=== PATIENT | female | born 1945 | race Caucasian/White ===

== ENCOUNTER 2025-03-10 15:15 | Inpatient (IN) | payer MEDICARE, OTHER ==
[~2025-03-10] VITALS: Ht 157.5 cm; Wt 56.2 kg
[2025-03-10 16:04] LABS: BASOPHILS % (AUTO) 0.6 % (0.0-2.0); EOSINOPHILS # (AUTO) 0.1 K/uL (0.0-0.7); EOSINOPHILS % (AUTO) 0.8 % (0.0-7.0); HEMATOCRIT 41.3 % (31.2-41.9); HEMOGLOBIN 13.7 g/dL (10.9-14.3); LYMPHOCYTES # (AUTO) 1.4 K/uL (0.8-4.8); LYMPHOCYTES % (AUTO) 21.6 % (20.5-51.5); MEAN CORPUSCULAR HEMOGLOBIN 30.3 uug (24.7-32.8); MEAN CORPUSCULAR HGB CONC 33 g/dL (32.3-35.6); MEAN CORPUSCULAR VOLUME 91.2 fL (75.5-95.3); MONOCYTES # (AUTO) 0.3 K/uL (0.1-1.30); MONOCYTES % (AUTO) 4.2 % (0.0-11.0); NEUTROPHILS # (AUTO) 4.7 K/uL (1.8-8.9); NEUTROPHILS % (AUTO) 72.8 % (38.5-71.5); PLATELET COUNT (AUTO) 199 K/uL (179-408); RED BLOOD CELL COUNT(AUTO) 4.53 MIL/uL (3.63-4.92); WHITE BLOOD COUNT (AUTO) 6.5 K/uL (3.8-11.8)
[2025-03-10 16:12] LABS: CALCIUM 10.9 mg/dL (8.5-10.1); CARBON DIOXIDE 27 mmol/L (21-32); CHLORIDE 104 mmol/L (98-107); CREATININE 1.3 mg/dL (0.6-1.3); GLUCOSE 80 mg/dL (74-106); POTASSIUM 4.5 mmol/L (3.5-5.1); SODIUM SERUM 142 mmol/L (136-145); UREA NITROGEN, BLOOD 26 mg/dL (7-18)
[2025-03-10 16:13] LABS: DIFFERENTIAL COMMENT 1
[2025-03-10 16:18] LABS: ALANINE AMINOTRANSFERASE 18 U/L (14-59); ALKALINE PHOSPHATASE 89 U/L (50-136); ASPARTATE AMINOTRANSFERASE 19 U/L (15-37); BILIRUBIN,DIRECT 0.2 mg/dL (0.0-0.2); BILIRUBIN,TOTAL 0.6 mg/dL (0.2-1.0); TOTAL PROTEIN, SERUM 8.1 g/dL (6.4-8.2)
[2025-03-10 16:20] LABS: ACETAMINOPHEN < 2.0 ug/mL (10-30)
[2025-03-10 16:39] LABS: ETHANOL < 3 MG/DL (0-10)
[2025-03-10 16:44] LABS: *BILIRUBIN,URIN NEGATIVE (NEGATIVE); *BLOOD, URINE NEGATIVE (NEGATIVE); *CLARITY,URINE CLEAR (CLEAR); *COLOR,URINE YELLOW (YELLOW); *KETONES,URINE TRACE (NEGATIVE); *PROTEIN,URINE NEGATIVE (NEGATIVE); *UROBILINOGEN,URINE 0.2 E.U./dl (NORMAL); LEUKOCYTE ESTERASE ,URINE NEGATIVE (NEGATIVE); NITRITE, URINE NEGATIVE (NEGATIVE); PH,URINE 6.5 (5.0-8.0); UGLUCOSE NEGATIVE (NEGATIVE)
[2025-03-10 16:45] LABS: RBC,URINE 0-3 /HPF (0-3); WBC,URINE 0-3 /HPF (0-3)
[2025-03-10 16:51] LABS: *AMPHETAMINE, URINE NEGATIVE (NEGATIVE); *BARBITURATE, URINE NEGATIVE (NEGATIVE); *BENZODIAZEPINE, URINE NEGATIVE (NEGATIVE); *CANNABINOID, URINE NEGATIVE (NEGATIVE); *COCCAINE, URINE NEGATIVE (NEGATIVE); *OPIATE, URINE NEGATIVE (NEGATIVE); *PHENCYCLIDINE SCREEN,URINE NEGATIVE (NEGATIVE); FENTANYL, URINE NEGATIVE (NEGATIVE)
[2025-03-10 19:35] VITALS: BP 158/84; TEMP 98.5; O2SAT 98
[2025-03-10] MEDS ORDERED: MAGNESIUM HYDROXIDE 30 ML LIQUID UDC PO PRN (21:15)
[2025-03-10] MEDS ORDERED: MAG HYDROX/AL HYDROX/SIMETH 30 ML LIQUID UDC PO PRN (21:15)
[2025-03-10] MEDS ORDERED: CYAN100085 PO (21:56)
[2025-03-10] MEDS ORDERED: CALC-1310 PO (21:59)
[2025-03-10] MEDS ORDERED: CHOL10005 PO (21:59)
[2025-03-10] MEDS ORDERED: DONE5TAB34 PO (22:02)
[2025-03-10] MEDS: LORAZEPAM 0.5 MG TABLET PO PRN (22:27)
[2025-03-11] MEDS: ZOLPIDEM 5 MG TABLET PO PRN (00:14)
[2025-03-11] MEDS ORDERED: QUETIAPINE FUMARATE 25 MG TABLET PO PRN (08:15)
[2025-03-11 08:26] LABS: ALANINE AMINOTRANSFERASE 17 U/L (14-59); ALBUMIN 3.7 g/dL (3.4-5.0); ALKALINE PHOSPHATASE 89 U/L (50-136); ASPARTATE AMINOTRANSFERASE 16 U/L (15-37); BILIRUBIN,DIRECT 0.1 mg/dL (0.0-0.2); BILIRUBIN,TOTAL 0.5 mg/dL (0.2-1.0); CALCIUM 10.3 mg/dL (8.5-10.1); CARBON DIOXIDE 26 mmol/L (21-32); CHLORIDE 106 mmol/L (98-107); CREATININE 1.1 mg/dL (0.6-1.3); GLUCOSE 80 mg/dL (74-106); POTASSIUM 4.3 mmol/L (3.5-5.1); SODIUM SERUM 144 mmol/L (136-145); TOTAL PROTEIN, SERUM 7.4 g/dL (6.4-8.2); UREA NITROGEN, BLOOD 30 mg/dL (7-18)
[2025-03-11 08:58] VITALS: BP 127/64; TEMP 97.5; O2SAT 96
[2025-03-11] MEDS: CYANOCOBALAMIN 1,000 MCG TABLET PO SCH (12:56)
[2025-03-11] MEDS: CHOLECALCIFEROL 1,000 UNIT TABLET PO SCH (12:56)
[2025-03-11 13:21] LABS: THYROID STIMULATING HORMONE 4.987 mIU/mL (0.358-3.740)
[2025-03-11] MEDS: CALCIUM CARBONATE 600 MG TABLET PO SCH (14:23)
[2025-03-11 16:21] VITALS: BP 121/54; TEMP 97.8; O2SAT 100
[2025-03-11 20:06] VITALS: BP 126/62; TEMP 97.7; O2SAT 98
[2025-03-11] MEDS: QUETIAPINE FUMARATE 25 MG TABLET PO SCH (22:20)
[2025-03-11] MEDS: DONEPEZIL 5 MG TABLET PO SCH (22:20)
[2025-03-12] MEDS: ZOLPIDEM 5 MG TABLET PO PRN (00:32)
[2025-03-12 07:30] VITALS: BP 120/75; TEMP 98.2; O2SAT 100
[2025-03-12] MEDS: ENSURE ENLIVE (VAN) 240 ML LIQUID PO SCH (09:58)
[2025-03-12] MEDS: ACETAMINOPHEN 325 MG TABLET PO PRN (15:08)
[2025-03-12] MEDS: LORAZEPAM 0.5 MG TABLET PO PRN (15:45)
[2025-03-12 15:51] VITALS: BP 106/69; TEMP 98.2; O2SAT 96
== END 2025-03-12 16:23 | disposition left against medical advice (07) | DRG 885 ==
LOC: ER 15:15 → GPS 16:40
PROVIDERS: ADMIT Psychiatry & Neurology Psychiatry; ATTEND Nurse Practitioner Acute Care
DX: F29 Unspecified psychosis not due to a substance or known physiological condition (principal); C86.3 Subcutaneous panniculitis-like T-cell lymphoma; Z94.81 Bone marrow transplant status; F02.82 Dementia in other diseases classified elsewhere, unspecified severity, with psychotic disturbance; F02.818 Dementia in other diseases classified elsewhere, unspecified severity, with other behavioral disturbance; F02.84 Dementia in other diseases classified elsewhere, unspecified severity, with anxiety; Z92.21 Personal history of antineoplastic chemotherapy; G30.9 Alzheimer's disease, unspecified; E78.00 Pure hypercholesterolemia, unspecified; Z91.83 Wandering in diseases classified elsewhere; Z88.0 Allergy status to penicillin; Z79.899 Other long term (current) drug therapy; Z53.29 Procedure and treatment not carried out because of patient's decision for other reasons
CPT/HCPCS: 36415; 70450; 71045; 71250; 83921; 84443; 85025; A4606; A4663; G0480